=== PATIENT | female | born 1970 | race Hispanic/Latino ===

== ENCOUNTER 2019-06-06 17:19 | Emergency (ER) | payer OTHER ==
[2019-06-06] MEDS ORDERED: ACETAMINOPHEN 325 MG TAB ONE (17:54)
[2019-06-06] MEDS ORDERED: SODIUM CHLORIDE 0.9% 1000ML 1,000 ML IV ONE (17:55)
[2019-06-06 18:44] LABS: BASOPHILS % (AUTO) 0.6 % (0.0-5.0); HEMATOCRIT 40.3 % (36-48); LYMPHOCYTES % (AUTO) 31.9 % (21.0-51.0); MEAN CORPUSCULAR HEMOGLOBIN 27.8 pg (27.0-33.0); MEAN CORPUSCULAR HGB CONC 31.5 g/dL (32.0-36.0); MEAN CORPUSCULAR VOLUME 88.2 fL (79-99); MONOCYTES % (AUTO) 7.1 % (3.0-13.0); PLATELET COUNT (AUTO) 331 K/uL (130-400); RED BLOOD CELL COUNT(AUTO) 4.57 MIL/uL (4.00-5.50); WHITE BLOOD COUNT (AUTO) 8.4 K/uL (4.8-10.8)
[2019-06-06 18:54] LABS: APPEARANCE,URINE Clear (CLEAR); BILIRUBIN,URINE Negative (NEGATIVE); COLOR,URINE Yellow (YELLOW); GLUCOSE, URINE (UA) Negative (NEGATIVE); KETONES,URINE Negative (NEGATIVE); LEUKOCYTE ESTERASE ,URINE Negative (NEGATIVE); NITRATE,URINE Negative (NEGATIVE); OCCULT BLOOD,URINE Negative (NEGATIVE); PROTEIN,URINE Negative (NEGATIVE); UROBILINOGEN,URINE 0.2 mg/dL (0.2-1.0)
[2019-06-06 18:58] LABS: CREATININE 0.7 mg/dL (0.5-1.5); POTASSIUM 5.8 mmol/L (3.5-5.1)
[2019-06-06 19:00] LABS: INR 0.94 (0.85-1.15); PARTIAL THROMBOPLASTIN TIME 26.4 SEC (26.3-35.5); PROTHROMBIN TIME 9.9 SEC (9.6-11.6)
[2019-06-06 19:02] LABS: ALBUMIN 3.6 g/dL (3.5-5.0); BILIRUBIN,TOTAL 0.4 mg/dL (0.2-1.0); TOTAL PROTEIN, SERUM 8.1 g/dL (6.0-8.3)
[2019-06-06] MEDS ORDERED: IOHEXOL-350 75 ML VIAL IV ONE (19:16)
[2019-06-06 19:55] LABS: CREATININE 0.7 mg/dL (0.5-1.5); POTASSIUM 4.4 mmol/L (3.5-5.1)
== END 2019-06-06 21:42 | disposition home or self-care (01) ==
LOC: EDH 17:19
DX: K59.00 Constipation, unspecified (principal); D25.9 Leiomyoma of uterus, unspecified; R42 Dizziness and giddiness; Z90.49 Acquired absence of other specified parts of digestive tract; Z98.890 Other specified postprocedural states
CPT/HCPCS: 36415; 74177; 80048; 80053; 81003; 81025; 83690; 84484; 85025; 85610; 85730; 93005; 96360; 99285; J7030; Q9967

== ENCOUNTER 2023-04-19 18:51 | Emergency (ER) | payer BC, OTHER ==
[~2023-04-19] VITALS: Ht 160 cm; Wt 63.5 kg
[2023-04-19 20:20] LABS: SARS-CoV-2, RNA, NAAT NEGATIVE SARS CoV-2 (NEGATIVE)
[2023-04-19 20:25] LABS: INFLUENZA TYPE B Negative For Type B (NEGATIVE)
[2023-04-19] MEDS ORDERED: SOLU-MEDROL 125MG VIAL IVP ONE (20:30)
[2023-04-19 20:34] LABS: INFLUENZA TYPE A Positive For Type A (NEGATIVE)
[2023-04-19 20:42] LABS: BASOPHILS # (AUTO) 0.01 K/uL (0.00-0.20); BASOPHILS % (AUTO) 0.2 % (0.0-5.0); HEMATOCRIT 37.5 % (36-48); IMMATURE GRANULOCYTE ABSOLUTE 0.02 K/uL (0-1); LYMPHOCYTES # (AUTO) 0.5 K/uL (1.0-4.8); LYMPHOCYTES % (AUTO) 8.4 % (21.0-51.0); MEAN CORPUSCULAR HEMOGLOBIN 28.3 pg (27.0-33.0); MEAN CORPUSCULAR HGB CONC 33.6 g/dL (32.0-36.0); MEAN CORPUSCULAR VOLUME 84.1 fL (79-99); MONOCYTES # (AUTO) 0.3 K/uL (0.1-1.0); MONOCYTES % (AUTO) 5.4 % (3.0-13.0); NEUTROPHILS # (AUTO) 4.9 K/uL (1.8-7.7); NEUTROPHILS % (AUTO) 85.6 % (40.0-77.0); PLATELET COUNT (AUTO) 286 K/uL (130-400); RED BLOOD CELL COUNT(AUTO) 4.46 MIL/uL (4.00-5.50); RED CELL DISTRIBUTION WIDTH 14.3 % (11.0-15.5); WHITE BLOOD COUNT (AUTO) 5.7 K/uL (4.8-10.8)
[2023-04-19 20:53] LABS: INR 0.94 (0.85-1.15); PROTHROMBIN TIME 10.9 SEC (9.6-11.6)
[2023-04-19 20:54] LABS: PARTIAL THROMBOPLASTIN TIME 30.2 SEC (26.3-35.5)
[2023-04-19 20:57] LABS: ALBUMIN 3.7 g/dL (3.5-5.0); BILIRUBIN,TOTAL 0.2 mg/dL (0.2-1.0); CREATININE 0.8 mg/dL (0.5-1.5); POTASSIUM 3.3 mmol/L (3.5-5.1); TOTAL PROTEIN, SERUM 7.6 g/dL (6.0-8.3)
[2023-04-19 21:07] LABS: THYROID STIMULATING HORMONE 1.06 uIU/mL (0.36-3.74)
[2023-04-19] MEDS ORDERED: ACETAMINOPHEN 500 MG TABLET PO ONE (22:00)
[2023-04-19] MEDS ORDERED: MORPHINE 2 MG SYG IVP ONE (22:00)
[2023-04-19] MEDS ORDERED: PRED20TA3 PO (22:15)
[2023-04-19] MEDS ORDERED: IBUP-1493 PO (22:15)
[2023-04-19] MEDS ORDERED: GUAI1TBM19 PO (22:15)
[2023-04-19 22:42] LABS: ERYTHROCYTE SEDIMENTATION RATE 12 MM/HR (0-30)
[2023-04-19 22:43] VITALS: BP 123/84; PULSE 97; RESP 19; O2SAT 99
== END 2023-04-19 22:43 | disposition home or self-care (01) ==
LOC: EDH 18:51
DX: J10.1 Influenza due to other identified influenza virus with other respiratory manifestations (principal); F41.9 Anxiety disorder, unspecified; E03.9 Hypothyroidism, unspecified; Z20.822 Contact with and (suspected) exposure to COVID-19
CPT/HCPCS: 99283; 96374; 87635; 84443; 82550; 84484; 80053; 85025; 85610; 85730; 85651; 87880; 87804 ×2; 86140; 36415; C9803; J2930